=== PATIENT | female | born 1980 | race Caucasian/White ===

== ENCOUNTER 2023-05-19 15:44 | Emergency (ER) | payer SELFPAY ==
[2023-05-19 15:48] VITALS: BP 132/81; PULSE 104; RESP 18; TEMP 97.7; BMI 28.7
[2023-05-19] MEDS ORDERED: KETOROLAC TROMETHAMINE 30 MG/1 ML VIAL ONE (17:35)
[2023-05-19] MEDS: KETOROLAC TROMETHAMINE 30 MG/1 ML VIAL IM ONE (17:38)
== END 2023-05-19 18:57 | disposition home or self-care (01) ==
LOC: JERFT 15:44
PROC: 3E0233Z Introduction of Anti-inflammatory into Muscle, Percutaneous Approach (ICD-10-PCS; principal; 2023-05-19)
DX: M25.511 Pain in right shoulder (principal); S43.121A Dislocation of right acromioclavicular joint, 100%-200% displacement, initial encounter; W01.0XXA Fall on same level from slipping, tripping and stumbling without subsequent striking against object, initial encounter
CPT/HCPCS: 73030-TC-RT-FY; 99284-25

== ENCOUNTER 2023-06-03 13:30 | Emergency (ER) | payer SELFPAY ==
[2023-06-03 13:38] VITALS: BP 121/82; PULSE 85; RESP 18; TEMP 99.2; BMI 26.4
[2023-06-03] MEDS: IBUPROFEN 600 MG TABLET (FP) PO ONE (15:04)
[2023-06-03] MEDS ORDERED: KETOROLAC TROMETHAMINE 30 MG/1 ML VIAL ONE (15:45)
[2023-06-03] MEDS ORDERED: LIDOCAINE 4% PATCH TP ONE (15:45)
[2023-06-03] MEDS: KETOROLAC TROMETHAMINE 30 MG/1 ML VIAL IM ONE (15:52)
[2023-06-03] MEDS: LIDOCAINE 5% TOPICAL PATCH TP ONE (16:20)
[2023-06-03] MEDS: LIDOCAINE 4% PATCH TP ONE (16:20)
[2023-06-03] MEDS ORDERED: LIDOCAINE PATCH REMOVAL MC SCH (22:00)
[2023-06-03] MEDS ORDERED: LIDOCAINE PATCH REMOVAL MC ONE (22:00)
== END 2023-06-03 16:53 | disposition home or self-care (01) ==
LOC: JERFT 13:30
PROC: 3E0233Z Introduction of Anti-inflammatory into Muscle, Percutaneous Approach (ICD-10-PCS; principal; 2023-06-03)
DX: M25.511 Pain in right shoulder (principal); S43.101D Unspecified dislocation of right acromioclavicular joint, subsequent encounter
CPT/HCPCS: 73000-TC-RT-FY; 73030-TC-RT-FY; 99284-25